=== PATIENT | female | born 1975 | race Caucasian/White ===

== ENCOUNTER → 2017-01-31 | Outpatient (CLI) | payer OTHER ==
[~2017-01-31] VITALS: Ht 157.5 cm; Wt 47.7 kg
[~2017-01-31] MED LIST: CYMBALTA60 MG PO; FISH OIL 1,001000 M2 PO; MILK THISTLE175 M3 PO; TRETINOIN20 G1 TP; VITAMINC500 PO
--- NOTE | ~2017-01-31 | HPC ---
[facility] [place] [address] PAIN MANAGEMENT CONSULTATION Name: MAUROSOPHIA GOLDEN Room #: REG Allie Rouse#: [id number] Admission: 01/31/17 Attend Phys: Yoav Hinds DO Discharge: Date of : 75 Report #: [id number] THIS REPORT FOR: //name// CC: Laura Hinds DATE OF SERVICE: 01/31/2017 The patient is a very pleasant 41-year-old female seen in consultation at the request of Dr. Lopez for evaluation of pain, right lower back radiating into the groin. The patient notes pain began greater than a year ago primarily in the right low back, but since August it started to radiate into the groin. She notes the pain is exacerbated with light impact exercising and carrying her son. She has a young child and she difficultly carries the car seat in her right hand, pain is on the right side. She has tried nonsteroidal anti-inflammatory medications with little efficacy. She sought eye care professional for 6 weeks with no real changes. Does have some ongoing stretches. X-rays had been accomplished in Dr. Martinez's office. She notes pain is intermittent and aching, rates anywhere from 3-5 on a 0-10 visual analog scale. Denies any specific weakness, paresthesia saddle anesthesia or bowel or bladder continence changes. It is interesting to note that while she denies any paresthesias. She does have some loss of 2-point discrimination in the right low back, and this will be discussed in the physical exam. REVIEW OF SYSTEMS: Complete review of systems attached to chart and gone over with the patient. She is , though she does live with her ex- who is the father of her child. They apparently have a collegial co-parenting arrangement. She does not smoke, drink alcohol to excess. History of some chronic anxiety for which she takes duloxetine. She does use vol gel topically. Has had GI surgeries including an appendectomy, an ectopic , exploratory laparoscopy and a fallopian tube cyst, all done laparoscopically. 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. She has continued to work despite pain. Pain impact score is fairly low, averaging about 2.4. PHYSICAL EXAMINATION: GENERAL: Reveals a 5 feet 3 inches, 108 pounds female, BMI is 19.2 kilograms per meter squared. VITAL SIGNS: Blood pressure is 132/64, pulse 70, respirations 16. NEUROLOGIC: Cranial nerves 2-12 are grossly intact. HEENT: Pupils equal, reactive to light and accommodation. Extraocular muscles are intact. There is no nystagmus or lateral gaze deviation. NECK: Cervical range of motion is full. The cervical flexion exacerbates some right low back pain. Upper extremity strength is symmetric. HEART: Rhythmical without murmur. LUNGS: Clear to auscultation. [address] [address] PAIN MANAGEMENT CONSULTATION Name: MAUROSOPHIA GOLDEN Room #: REG JADA Rouse#: [id number] Admission: 01/31/17 Attend Phys: Yoav Hinds DO Discharge: Date of : 75 Report #: [id number] ABDOMEN: Benign. MUSCULOSKELETAL: Rises from chair easily. Gait is tandem. Lumbar flexion is good to 90+ degrees. She is tender in the right SI area and has some loss of 2-point discrimination in this area. Right hip flexion strength is modestly diminished and exacerbates right low back pain. Positive Nigel test on the right, though nominally so. Gaenslen and distraction are equivocal, resistance to external leg rotation (piriformis test) is negative. X-rays does note patient has 6 nonbearing lumbar type vertebrae. There is facet arthropathy at L5-L6 and L6-L7 causing some neural foraminal narrowing. 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 ASSESSMENT: Sacroiliac joint dysfunction, lumbosacral spondylosis in a patient with a minor component of lumbar radiculopathy. RECOMMENDATION: I have discussion with the patient today, we have elected and referred to Physical Therapy, continue [id number] nonsteroidal anti-inflammatory medication (Aleve) and follow up simply as needed for consideration for bilateral L5-L6 and L6-S1 (S2?) facet joint injections under fluoroscopy for lumbosacral, axial back pain, which appears to be the primary component of her pain. Again, there is a bit of a radicular component radiating around to the groin and this would appear to be somewhat of an L1-L2 radicular pattern and there is really no specific changes noted in the x-ray for these upper lumbar issues. Thank you for allowing me to participate in the patient's care. We will see her simply on an as needed basis. <ELECTRONICALLY SIGNED> By: Yoav Hinds DO 02/04/17 [id number] Yoav Hinds DO /nt
[2017-01-31 12:53] VITALS: BP 132/64
== END | disposition home or self-care (01) ==
LOC: PAIN 01-28 11:17
DX: M53.3 Sacrococcygeal disorders, not elsewhere classified (principal); M47.897 Other spondylosis, lumbosacral region; M54.16 Radiculopathy, lumbar region; F41.8 Other specified anxiety disorders; F17.210 Nicotine dependence, cigarettes, uncomplicated; Z90.49 Acquired absence of other specified parts of digestive tract; Z98.890 Other specified postprocedural states; Z88.2 Allergy status to sulfonamides; Z88.8 Allergy status to other drugs, medicaments and biological substances